=== PATIENT | male | born 2000 | race Caucasian/White ===

== ENCOUNTER 2019-05-11 15:00 | Emergency (ER) | payer SELFPAY ==
[~2019-05-11] VITALS: Ht 167.6 cm; Wt 67.6 kg
[2019-05-11 15:07] VITALS: BP 103/65
--- NOTE | 2019-05-11 15:52 | NUR ---
CHARGE NURSE: PT LEFT WITHOUT BEING SEEN
== END 2019-05-11 15:58 | disposition left against medical advice (07) ==
LOC: ED 15:46
DX: R50.9 Fever, unspecified (principal); R42 Dizziness and giddiness; Z53.21 Procedure and treatment not carried out due to patient leaving prior to being seen by health care provider

== ENCOUNTER 2020-09-28 06:36 | Inpatient (IN) | payer OTHER ==
[~2020-09-28] VITALS: Ht 167.6 cm; Wt 65.8 kg
[2020-09-28] MEDS ORDERED: ONDANSETRON ODT 4 MG ONE (07:26)
[2020-09-28] MEDS ORDERED: ONDANSETRON ODT 4 MG PO ONE (07:30)
[2020-09-28 07:47] LABS: BASOPHILS % (AUTO) 0 % (0-1); EOSINOPHILS % (AUTO) 9 % (1-7); LYMPHOCYTES % (AUTO) 18 % (22-44); MEAN CORPUSCULAR HEMOGLOBIN 29.7 pg (27.5-34.5); MEAN CORPUSCULAR HGB CONC 33.2 g/dL (33.2-36.2); MEAN PLATELET VOLUME 9.3 fL (7.4-10.4); MONOCYTES % (AUTO) 6 % (2-9); NEUTROPHILS % (AUTO) 67 % (42-75); PLATELET COUNT 201 x10^3/uL (130-400); RED CELL DISTRIBUTION WIDTH 13.1 % (9.4-14.8)
[2020-09-28 07:48] LABS: MD NO
[2020-09-28 07:55] LABS: ALANINE AMINOTRANSFERASE 31 U/L (12-78); ANION GAP 16 mmol/L (5-15); CALCIUM 8.9 mg/dL (8.5-10.1); CHLORIDE 93 mmol/L (98-107); CREATININE 1.36 mg/dL (0.7-1.3)
[2020-09-28 07:58] LABS: ALKALINE PHOSPHATASE 122 U/L (45-117); BILIRUBIN,TOTAL 0.8 mg/dL (0.2-1.0); TOTAL PROTEIN 7.2 g/dL (6.4-8.2)
[2020-09-28 08:01] LABS: MICROSCOPIC NOT IND
--- NOTE | 2020-09-28 08:11 | NUR ---
PT REPORT N/V, WEAKNESS. DRY MOUTH FOR PAST FEW DAYS. NOT IMPROVING. UNABLE TO KEEP FOODS/FLUID DOWN. STATES HE HAS BEEN DRINKING SUGARY DRINKS.
[2020-09-28] MEDS ORDERED: SODIUM CHLORIDE 0.9% 1,000ML IVBOLUS ONE ×2 (08:30→09:30)
--- NOTE | 2020-09-28 08:41 | NUR ---
CARD MONITOR IN PLACE. EKG IN PROCESS. PIV AND IVG TO BE DONE. LAB AT BESIDE. PT IS UPSET. EDUCATED PT ON POC
[2020-09-28 08:48] LABS: ACETONE, SERUM Large (80mg/dL) (Negative)
[2020-09-28 08:54] LABS: PH, VENOUS 7.302 pH (7.320-7.420)
[2020-09-28] MEDS ORDERED: INSULIN REGULAR 100 UNITS/ML, 3ML VIAL SQ-INSULIN ONE (09:30)
--- NOTE | 2020-09-28 09:41 | NUR ---
MD GAMBOA AT BEDSIDE DICUSSING POC. 2ND NS BOLUS INFUSING
[2020-09-28] MEDS ORDERED: INSULIN SINGLE DOSE, ER ONE (09:45)
[2020-09-28] MEDS ORDERED: INSULIN REGULAR 100 UNITS/ML, 3ML VIAL IVPush ONE (10:00)
--- NOTE | 2020-09-28 11:11 | NUR ---
TO BE ADMITTED, ORDERED MEAL TRAY FOR PATIENT. SEEN BY PEEWEE
[2020-09-28] MEDS ORDERED: ACETAMINOPHEN 325 MG TABLET PO PRN (11:30)
[2020-09-28] MEDS ORDERED: KETOROLAC 30 MG/1 ML IV PRN (11:30)
[2020-09-28] MEDS ORDERED: ONDANSETRON 2MG/ML, 2ML IVPush PRN (11:30)
[2020-09-28] MEDS ORDERED: DEXTROSE 50%, 50ML SYRINGE IVPush PRN (11:30)
[2020-09-28] MEDS ORDERED: GLUCAGON 1 MG IM PRN (11:30)
[2020-09-28] MEDS ORDERED: hydrALAzine 20 MG/ML, 1ML IVPush PRN (11:30)
[2020-09-28] MEDS ORDERED: ONDANSETRON ODT 4 MG PO PRN (11:30)
[2020-09-28] MEDS ORDERED: DEXTROSE 4 GM TAB.CHEW PO PRN (11:30)
[2020-09-28 11:45] LABS: ANION GAP 12 mmol/L (5-15); CALCIUM 8.2 mg/dL (8.5-10.1); CHLORIDE 108 mmol/L (98-107); CREATININE 1.22 mg/dL (0.7-1.3)
--- NOTE | 2020-09-28 11:52 | NUR ---
REPORT TO AMARILIS
[2020-09-28 12:26] VITALS: BP 127/89
[2020-09-28] MEDS: SODIUM CHLORIDE 0.9% 1,000 ML IV SCH ×3 (13:43→21:26)
[2020-09-28] MEDS: INSULIN LISPRO 100 UNITS/ML, PEN SQ-INSULIN SCH ×2 (17:09→22:16)
[2020-09-28 17:21] LABS: ANION GAP 14 mmol/L (5-15); CALCIUM 7.7 mg/dL (8.5-10.1); CHLORIDE 108 mmol/L (98-107); CREATININE 0.95 mg/dL (0.7-1.3)
[2020-09-28 18:37] VITALS: BP 100/67
[2020-09-28] MEDS: SODIUM CHLORIDE FLUSH 10ML SYR IVF SCH (21:27)
[2020-09-28] MEDS: INSULIN GLARGINE 100 UNITS/ML, PEN SQ-INSULIN SCH (22:15)
[2020-09-28 23:55] LABS: ANION GAP 11 mmol/L (5-15); CALCIUM 7.6 mg/dL (8.5-10.1); CHLORIDE 112 mmol/L (98-107); CREATININE 0.93 mg/dL (0.7-1.3)
[2020-09-29 00:41] VITALS: BP 98/61
[2020-09-29] MEDS: SODIUM CHLORIDE 0.9% 1,000 ML IV SCH ×2 (03:47→08:45)
[2020-09-29 05:35] LABS: BASOPHILS % (AUTO) 0 % (0-1); EOSINOPHILS % (AUTO) 18 % (1-7); LYMPHOCYTES % (AUTO) 41 % (22-44); MEAN CORPUSCULAR HEMOGLOBIN 29.6 pg (27.5-34.5); MEAN CORPUSCULAR HGB CONC 34.6 g/dL (33.2-36.2); MEAN PLATELET VOLUME 8.9 fL (7.4-10.4); MONOCYTES % (AUTO) 7 % (2-9); NEUTROPHILS % (AUTO) 35 % (42-75); PLATELET COUNT 168 x10^3/uL (130-400); RED BLOOD COUNT 4.92 x10^6/uL (4.38-5.82); RED CELL DISTRIBUTION WIDTH 12.9 % (9.4-14.8)
[2020-09-29 05:43] LABS: ANION GAP 4 mmol/L (5-15); CALCIUM 7.8 mg/dL (8.5-10.1); CHLORIDE 115 mmol/L (98-107); CREATININE 0.89 mg/dL (0.7-1.3)
[2020-09-29 05:45] LABS: MD NO
[2020-09-29 07:47] VITALS: BP 111/75
[2020-09-29] MEDS: INSULIN LISPRO 100 UNITS/ML, PEN SQ-INSULIN SCH ×4 (07:50→20:30)
[2020-09-29] MEDS: SODIUM CHLORIDE FLUSH 10ML SYR IVF SCH (09:00)
[2020-09-29] MEDS: INSULIN GLARGINE 100 UNITS/ML, PEN SQ-INSULIN SCH (20:30)
[2020-09-29 21:48] VITALS: BP 95/63
[2020-09-30] VITALS (7 sets, daily range): BP systolic 99–127; BP diastolic 64–89
[2020-09-30] MEDS: INSULIN LISPRO 100 UNITS/ML, PEN SQ-INSULIN SCH ×4 (08:07→20:28)
[2020-09-30] MEDS ORDERED: DIPHENHYDRAMINE 50 MG/ML, 1ML IVPush ONE (13:00)
[2020-09-30] MEDS ORDERED: DIPHENHYDRAMINE 25 MG CAPSULE PO PRN (13:00)
[2020-09-30] MEDS ORDERED: MAALOX/HYOSCYAMINE/LIDOCAINE 45 ML BTL PO ONE (14:30)
[2020-09-30] MEDS ORDERED: HYOSCYAMINE 0.125 MG TAB.SUBL SL PRN (14:30)
[2020-09-30] MEDS ORDERED: INSU100I11 SQ-INSULIN (15:51)
[2020-09-30] MEDS ORDERED: INSU100I13 SQ-INSULIN ×2 (15:51)
[2020-09-30 15:55] LABS: ANION GAP 7 mmol/L (5-15); CALCIUM 8.3 mg/dL (8.5-10.1); CHLORIDE 106 mmol/L (98-107); CREATININE 0.65 mg/dL (0.7-1.3)
[2020-09-30] MEDS ORDERED: GLUCAGON 1 MG IM PRN (16:30)
[2020-09-30] MEDS ORDERED: DEXTROSE 4 GM TAB.CHEW PO PRN (16:30)
[2020-09-30] MEDS ORDERED: DEXTROSE 50%, 50ML SYRINGE IVPush PRN (16:30)
[2020-09-30] MEDS ORDERED: methylPREDNISolone SOD SUCC 125 MG/2 ML ONE (17:09)
[2020-09-30] MEDS: methylPREDNISolone SOD SUCC 125 MG/2 ML IVPush ONE ×2 (17:11→17:17)
[2020-09-30] MEDS ORDERED: KETOROLAC 30 MG/1 ML IV PRN (17:30)
[2020-09-30] MEDS ORDERED: ALBUTEROL SULFATE 2.5 MG/3 ML NPPB PRN (17:30)
[2020-09-30] MEDS ORDERED: INSULIN GLARGINE 100 UNITS/ML, PEN SQ-INSULIN SCH ×2 (21:00)
[2020-09-30] MEDS: SODIUM CHLORIDE FLUSH 10ML SYR IVF SCH (21:00)
[2020-10-01 02:10] VITALS: BP 95/60
[2020-10-01 06:22] LABS: ALBUMIN 2.9 g/dL (3.4-5.0); ANION GAP 3 mmol/L (5-15); CALCIUM 8.2 mg/dL (8.5-10.1); CHLORIDE 107 mmol/L (98-107)
[2020-10-01 06:26] LABS: ALANINE AMINOTRANSFERASE 20 U/L (12-78); ALKALINE PHOSPHATASE 72 U/L (45-117); BILIRUBIN,TOTAL 0.5 mg/dL (0.2-1.0); CREATININE 0.72 mg/dL (0.7-1.3); TOTAL PROTEIN 5.2 g/dL (6.4-8.2)
[2020-10-01 07:00] VITALS: BP 101/69
[2020-10-01] MEDS: SODIUM CHLORIDE FLUSH 10ML SYR IVF SCH ×2 (07:05→21:00)
[2020-10-01] MEDS: INSULIN LISPRO 100 UNITS/ML, PEN SQ-INSULIN SCH ×4 (07:30→20:09)
[2020-10-01] MEDS ORDERED: POTASSIUM CHLORIDE 20 MEQ TAB.ER.PRT PO ONE (08:30)
[2020-10-01] MEDS ORDERED: INSU100I28 SQ (11:52)
[2020-10-01 13:33] VITALS: BP 100/68
[2020-10-01] MEDS ORDERED: INSULIN GLARGINE 100 UNITS/ML, PEN SQ-INSULIN SCH (21:00)
[2020-10-01 21:45] VITALS: BP 93/64
[2020-10-02 00:36] VITALS: BP 99/67
[2020-10-02 06:20] LABS: ANION GAP 5 mmol/L (5-15); CHLORIDE 108 mmol/L (98-107); CREATININE 0.71 mg/dL (0.7-1.3)
[2020-10-02 07:15] VITALS: BP 104/70
[2020-10-02] MEDS: SODIUM CHLORIDE FLUSH 10ML SYR IVF SCH (07:27)
[2020-10-02] MEDS: INSULIN LISPRO 100 UNITS/ML, PEN SQ-INSULIN SCH ×2 (08:15→12:35)
[2020-10-02 12:43] VITALS: BP 104/72
[2020-10-02] MEDS ORDERED: INSULIN GLARGINE 100 UNITS/ML, PEN SQ-INSULIN SCH (21:00)
== END 2020-10-02 15:40 | disposition home or self-care (01) | DRG 637 ==
LOC: ED 09:06 → EDIP 10:02 → 3N 12:01 → DCLOUNGE 10-02 15:18
PROVIDERS: ADMIT Hospitalist; ATTEND Internal Medicine
DX: E10.10 Type 1 diabetes mellitus with ketoacidosis without coma (principal); K85.90 Acute pancreatitis without necrosis or infection, unspecified; E87.1 Hypo-osmolality and hyponatremia; E86.0 Dehydration; E87.5 Hyperkalemia; F41.9 Anxiety disorder, unspecified; J45.909 Unspecified asthma, uncomplicated; N28.9 Disorder of kidney and ureter, unspecified; T78.1XXA Other adverse food reactions, not elsewhere classified, initial encounter; Z77.011 Contact with and (suspected) exposure to lead; Z79.4 Long term (current) use of insulin; Z87.891 Personal history of nicotine dependence; Z88.1 Allergy status to other antibiotic agents; Z88.0 Allergy status to penicillin; Y92.89 Other specified places as the place of occurrence of the external cause
CPT/HCPCS: 36415; 76705; 80047; 80048; 80053; 81003; 82010; 82803; 82962; 83036; 83690; 83735; 84100; 84681; 85025; 93005; 99291; G0378; J1815; Q0162; J1200; J2930; J7030; Q0163